=== PATIENT | female | born 2000 | race Two or more races ===

== ENCOUNTER 2024-06-26 18:08 | Emergency (ER) | payer MEDICAID, SELFPAY ==
[2024-06-26 18:09] VITALS: BMI 28.8
--- NOTE | 2024-06-26 18:42 | PD.EDRME ---
Rapid Medical Screening Exam RME Arrival date/time: 06/26/24 18:08 Time Seen by Provider: 06/26/24 18:31 Vital signs: Vital Signs Temperature 102.5 F H 06/26/24 18:43 Pulse Rate 137 H 06/26/24 18:43 Respiratory Rate 18 06/26/24 18:43 Blood Pressure 127/83 06/26/24 18:43 Pulse Oximetry (%) 98 06/26/24 18:43 Oxygen Delivery Method Room Air 06/26/24 18:43 Vital signs reviewed by provider: Yes RME Narrative: 23-year-old female with no significant past medical history coming in with abdominal pain right mid quadrant that started 2 days ago. The patient states the pain has been constant and intermittently increasing over the last few days. No radiation. Fever subjective at home without taking any Tylenol. The patient otherwise has no vaginal discharge or dysuria. No cough. No surgical past history Normal last bowel movement yesterday Not sexually active..
[2024-06-26 18:43] VITALS: BP 127/83; PULSE 137; RESP 18; TEMP 39.2; O2SAT 98
--- NOTE | 2024-06-26 18:52 | XR_ITS ---
Examination: CT abdomen with intravenous contrast CT pelvis with intravenous contrast 2-D coronal reconstructions 2-D sagittal reconstructions Date and time of exam:June 26, 2024 1045 hrs. Indications: Sepsis today, abdominal pain fever and chills beginning 3 days ago. CTDI: vol (mGy) 6.86 DLP: (mGycm) 370 Technique: Multiple axial sections of the abdomen and pelvis have been obtained. 64 slice high-resolution scanner used. 3 mm axial sections have been obtained, post intravenous injection 60 cc [id number] 2-D sagittal, coronal reconstructions obtained. Low dose protocols were performed. One or more of the following dose reduction techniques were used; automated exposure control, adjustment of the mA and/or KV according to patient size, use of iterative reconstruction technique. Findings: No focal liver or splenic lesion No gallstones No pancreatic mass No renal or ureteral calculi There is focal edema in the right kidney Aorta not enlarged No pericecal inflammatory change 9 cm partially fat-containing pelvic mass Anteverted uterus Urinary bladder intact Impression: Acute right pyelonephritis 9 cm partially fat-containing pelvic mass, recommend pelvic sonography follow-up to exclude dermoid tumor
--- NOTE | 2024-06-26 18:53 | XR_ITS ---
Examination: AP chest single view Technique one AP portable chest single view Indications: Sepsis protocol Exam date and time: June 26, 2024 1920 hrs. Indications: Sepsis today with fever abdominal pain Findings: Normal heart size Lungs are clear. The osseous structures are intact Impression: No active disease
--- NOTE | 2024-06-26 19:02 | EDNOTE_ITS ---
ED Abdominal Pain RME/HPI General Stated complaint: RUQ PAIN/FEVER/CHILLS Time seen by provider: 06/26/24 18:31 Arrival date/time: 06/26/24 18:08 Limitations: no limitations RME / HPI RME / HPI narrative: DR. SIEGEL MAIN ED EVALUATION: 23-year-old female with no significant past medical history presents to the Emergency Department with complaint of abdominal pain in the right mid quadrant that started 2 days ago. The patient states the pain has been constant and intermittently increasing over the last few days. No radiation. Fever subjective at home without taking any Tylenol. The patient otherwise has no vaginal discharge or dysuria. No cough. No surgical past history Normal last bowel movement yesterday Not sexually active. Related Data Previous Rx's ?Medication ?Instructions ?Recorded cephalexin 500 mg capsule 500 mg PO TID #21 caps 06/27/24 Allergies Allergy/AdvReac Type Severity Reaction Status Date / Time No Known Allergies Allergy Verified 06/26/24 21:06 Review of Systems Review of Systems Systems Reviewed: All systems reviewed, normal except as documented Narrative Review of Systems: GEN: + subjective fever, no chills, no weight loss EYES: No discharge, no visual changes, no pain HEENT: No ear pain, no congestion, no sore throat PULM: No shortness of breath, no cough, no congestion CV: No chest pain, no dyspnea on exertion, no palpitations GI: No nausea, no vomiting, no diarrhea, + abdominal pain in the right mid quadrant pain, no constipation : No frequency, no urgency and no dysuria MUSC/SKEL: No joint pain, no back pain SKIN: No rash PSYCH: No hallucinations, no depression HEME/LYMPH: No easy bleeding or bruising tendencies NEURO: No weakness, no headache Past Medical History Social History SMOKING STATUS: Never smoker SUBSTANCE USE: does not use ALCOHOL: Never ED Exam General Limitations: Present no limitations General appearance: Present alert and in no apparent distress Head Head exam: Present atraumatic, normocephalic and normal inspection Eye Eye exam: Present normal appearance, PERRL and EOMI ENT ENT exam: Present normal exam, normal oropharynx and mucous membranes moist Neck Neck exam: Present normal inspection, full ROM and trachea midline Chest Chest inspection: Present normal inspection and symmetric chest wall rise Respiratory Respiratory exam: Present normal lung sounds bilaterally Cardiovascular Cardiovascular exam: Present regular rate, normal rhythm and normal heart sounds Abdominal Exam Abdominal exam: Present tenderness (Right of the umbilicus tenderness palpation.), guarding, rebound, normal bowel sounds, psoas sign and heel tap sign; Absent distention or Orellana's sign Extremities Exam Extremities exam: Present normal inspection and full ROM Back Exam Back exam: Present normal inspection and full ROM Neurological Exam Neurological exam: Present alert, oriented X3 and CN II-XII intact Psychiatric Psychiatric exam: Present normal affect and normal mood Skin Skin exam: Present warm, dry, intact and normal color Course Course Course Narrative: 1853: Sepsis alert initiated. Orders made at this time are congruent with ED Adult Sepsis Order List. Re-evaluation is to be completed. 2102: Fluids started. 2132: Sepsis reassessment performed consisting of lab review, vitals, physical exam including auscultation of heart, lungs, and visual evaluation of capillary refills, mucosal membranes and extremities. Quality Measures none Orders Category Date Time Status CT Screening X1 Care 06/26/24 18:52 Active Nurse Receptionist STAT Care 06/26/24 18:52 Active Continuous Pulse Oximetry STAT Care 06/26/24 18:52 Completed EKG (ED ONLY) *Do not use* NOW Care 06/26/24 18:52 Completed Insert IV NOW Care 06/26/24 18:52 Active NPO STAT Care 06/26/24 18:52 Active Strict Intake and Output Routine Care 06/26/24 18:[address] abd pel w con SEPSIS OTIS Stat Exams 06/26/24 18:52 Completed EKG (ED Only) Stat Exams 06/26/24 18:52 Ordered US pelvic complete Stat Exams 06/27/24 01:30 Taken XR chest 1V SEPSIS PROTOCOL Stat Exams 06/26/24 18:53 Completed B-Type Natriuretic Peptide Stat Lab 06/26/24 20:20 Completed Blood Culture (Lab) Stat Lab 06/26/24 20:20 Received CBC Stat Lab 06/26/24 20:20 Completed Comprehensive Metabolic Panel Stat Lab 06/26/24 20:20 Completed HCG Qualitative,Urine Stat Lab 06/26/24 19:24 Completed LDH (Lactate Dehydrogenase) Stat Lab 06/26/24 20:20 Completed Lactate (Lactic Acid) Stat Lab 06/26/24 20:20 Completed Lipase Stat Lab 06/26/24 20:20 Completed Magnesium Stat Lab 06/26/24 20:20 Completed Partial Thromboplastin Time Stat Lab 06/26/24 20:20 Completed Phosphorous Stat Lab 06/26/24 20:20 Completed Procalcitonin Stat Lab 06/26/24 20:20 Completed Prothrombin Time with INR Stat Lab 06/26/24 20:20 Completed Troponin I Stat Lab 06/26/24 20:20 Completed Urinalysis Stat Lab 06/26/24 19:24 Completed Urine Culture Stat Lab 06/26/24 19:24 Received Dexamethasone Inj [Decadron Inj] Med 06/26/24 18:41 Discontinued 10 mg PO X1 ONE DiphenhydrAMINE [Benadryl] Med 06/26/24 18:41 Discontinued 25 mg PO X1 ONE Famotidine [Pepcid] Med 06/26/24 18:41 Discontinued 20 mg PO X1 ONE Ketorolac Inj [Toradol Inj] Med 06/27/24 01:30 Discontinued 30 mg IVP X1 ONE Morphine Inj Med 06/27/24 01:30 Discontinued 2 mg IVP X1 ONE Ondansetron Inj [Zofran Inj] Med 06/27/24 01:32 Discontinued 4 mg IV X1 ONE Sodium Chloride 0.9% 1000 ml [Ns] 1,000 ml Med 06/27/24 01:31 Discontinued IV 999 mls/hr Sodium Chloride 0.9% 1000 ml [Ns] 1,710 ml Med 06/26/24 18:52 Discontinued IV 1,710 mls/hr cefTRIAXone [Rocephin] 1,000 mg Med 06/27/24 01:31 Discontinued Sodium Chloride 0.9% (P) [Ns 0.9% (P)] 50 ml IV X1 Oxygen Delivery NOW RT 06/26/24 18:52 Active Vital Signs Vital signs: Vital Signs Temperature 102.5 F H 06/26/24 18:43 Pulse Rate 137 H 06/26/24 18:43 Respiratory Rate 18 06/26/24 18:43 Blood Pressure 127/83 06/26/24 18:43 Pulse Oximetry (%) 98 06/26/24 18:43 Oxygen Delivery Method Room Air 06/26/24 18:43 Abdominal Pain MDM MDM Narrative MDM Narrative:: I, Lisa Munoz am scribing for and in the presence of Dr. Siegel. Patient data External records reviewed:: None (no previous visits) Clinical information provided by:: patient Social determinants that could affect healthcare access:: none Patient has the following chronic illnesses:: Denies any PMHx, surgeries, daily medications, or known allergies. How is presenting disease/condition affected by chronic disease/condition?: no chronic disease Evaluation data The following diagnostics were reviewed and interpreted by me:: lab results, radiology exam(s) and EKG tracing(s) Lab and/or radiology exams considered but not ordered:: none Interpretation Summary: Procedure(s): XR chest 1V SEPSIS PROTOCOL Accession Number(s): [id number] cc: Juan F Boo MD; David Solano MD; Renae Siegel MD~ Examination: AP chest single view Technique one AP portable chest single view Indications: Sepsis protocol Exam date and time: June 26, 2024 1920 hrs. Indications: Sepsis today with fever abdominal pain Findings: Normal heart size Lungs are clear. The osseous structures are intact Impression: No active disease Dictated By: David Solano MD [facility] Report Signed Patient: KARLY OLIVAS. Record#: [id number] Birthdate: 2000 Age/Sex: 23 / F [facility] Attending Dr: Ordering Physician: Renae Siegel MD Date of Service: 06/26/24 Procedure(s): CT abd pel w con SEPSIS OTIS Accession Number(s): [id number] cc: Juan F Boo MD; David Solano MD; Renae Siegel MD~ Examination: CT abdomen with intravenous contrast CT pelvis with intravenous contrast 2-D coronal reconstructions 2-D sagittal reconstructions Date and time of exam:June 26, 2024 1045 hrs. Indications: Sepsis today, abdominal pain fever and chills beginning 3 days ago. CTDI: vol (mGy) 6.86 DLP: (mGycm) 370 Technique: Multiple axial sections of the abdomen and pelvis have been obtained. 64 slice high-resolution scanner used. 3 mm axial sections have been obtained, post intravenous injection 60 cc [id number] 2-D sagittal, coronal reconstructions obtained. Low dose protocols were performed. One or more of the following dose reduction techniques were used; automated exposure control, adjustment of the mA and/or KV according to patient size, use of iterative reconstruction technique. Findings: No focal liver or splenic lesion No gallstones No pancreatic mass No renal or ureteral calculi There is focal edema in the right kidney Aorta not enlarged No pericecal inflammatory change 9 cm partially fat-containing pelvic mass Anteverted uterus Urinary bladder intact Impression: Acute right pyelonephritis 9 cm partially fat-containing pelvic mass, recommend pelvic sonography follow-up to exclude dermoid tumor Dictated By: David Solano MD Signed By: <Electronically signed by David Solano MD in [place]> 06/26/24 2313 Medications / Prescriptions Medications or Prescriptions considered but not ordered:: none Medication administrations:: Medication Administration History Discontinued Medications Dexamethasone Sodium Phosphate (Dexamethasone Sod Phos Inj 10 Mg/Ml Vial) 10 mg PO X1 ONE Stop: 06/26/24 18:42 Last Admin: 06/26/24 20:40 Dose: Not Given Documented By: KD Non-Admin Reason: Discontinued Diphenhydramine HCl (Diphenhydramine Elix 25 Mg/10 Ml Udc) 25 mg PO X1 ONE Stop: 06/26/24 18:42 Last Admin: 06/26/24 20:40 Dose: Not Given Documented By: KD Non-Admin Reason: Discontinued Famotidine (Famotidine 20 Mg Tablet) 20 mg PO X1 ONE Stop: 06/26/24 18:42 Last Admin: 06/26/24 20:40 Dose: Not Given Documented By: KD Non-Admin Reason: Discontinued Sodium Chloride (Ns) 1,710 mls @ 1,710 mls/hr 30 ml/kg infuse over 60 min (1710 ml) IV .Q1H ONE Stop: 06/26/24 19:51 Last Infusion: 12/21/24 22:06 Dose: Infused Documented By: Admin: 06/26/24 21:03 Dose: 1,710 mls/hr Documented By: RAFA Ceftriaxone Sodium 1,000 mg/ (Sodium Chloride) 50 mls @ 100 mls/hr IV X1 ONE Stop: 06/27/24 02:00 Last Infusion: 06/27/24 03:04 Dose: Infused Documented By: Admin: 06/27/24 01:56 Dose: 100 mls/hr Documented By: RAFA Sodium Chloride (Ns) 1,000 mls @ 999 mls/hr IV .Q1H1M ONE Stop: 06/27/24 02:31 Last Infusion: 06/27/24 03:04 Dose: Infused Documented By: Admin: 06/27/24 01:55 Dose: 999 mls/hr Documented By: RAFA Ketorolac Tromethamine (Ketorolac Inj 30 Mg/Ml Vial) 30 mg IVP X1 ONE Stop: 06/27/24 01:31 Last Admin: 06/27/24 01:58 Dose: 30 mg Documented By: RAFA Morphine Sulfate (Morphine Sulf Inj 10 Mg/Ml Vial) 2 mg IVP X1 ONE Stop: 06/27/24 01:31 Last Admin: 06/27/24 01:58 Dose: 2 mg Documented By: RAFA Ondansetron HCl (Ondansetron Inj 2 Mg/Ml Inj 2 Ml) 4 mg IV X1 ONE; Protocol Stop: 06/27/24 01:33 Last Admin: 06/27/24 01:57 Dose: 4 mg Documented By: RAFA see above Consultations Consultation(s) initiated? (list below): No Diagnosis Differential diagnosis abdominal pain: other (appendicitis, gallbladder disease, acute cholecystitis, cholangitis, viral syndrome) Most likely diagnosis given after review of the tests above:: see below Admission Indicated Admission indicated?: not indicated Admission Request Was there a request for admission?: No Disposition Plan Disposition Plan: Discharge Discharge Attestation Discharge Attestation: The patient and all family members were given an opportunity to ask questions and understood the discharge instructions. Discharge instructions specifically effects, indications for sooner follow up or return to the emergency department, and the expected course of current diagnosis. Patient condition: Stable Discharge Plan Plan Patient Disposition: HOME (Self Care) Patient condition on transfer: Stable Prescriptions/Referrals Prescriptions/Med Rec: New cephalexin 500 mg capsule 500 mg PO TID Qty: 21 0RF Problem List Clinical Impression: Pyelonephritis, UTI (urinary tract infection) Patient/Caregiver Discharge Instructions Education Materials: When to Use Antibiotics, ED Pyelonephritis, Female (Adult) Additional Instructions: 1,. Take anybody since he cried for your infection of your kidney. You can use [id number] Tylenol and/or Motrin for fever if needed. You will have to use alternate form of control pill for the next 30 days if you are on control medications because you will be on antibiotics. 2. Follow-up with your primary care physician in 48 hours to get the results of the urine culture. Return sooner to the emergency department if you are feeling worse, or vomiting, high fever despite Tylenol Motrin, or any other concerns. Print Language: Indonesian Stand Alone Forms: Thu Award Info., Patient Portal Info Letter
[2024-06-26 19:38] LABS: Collection Type, Urine Clean Catch
[2024-06-26 20:03] LABS: Bacteria,Urine Rare; Bilirubin,Urine Negative (Negative); Blood,Urine 1+ (Negative); Clarity,Urine Turbid (Clear/Hazy); Color,Urine Yellow (Lt Yel-Yel); Glucose, Urine Negative (Negative); Ketones,Urine 1+ (Negative); Leukocyte Esterase,Urine Positive (Negative); Nitrite,Urine Positive (Negative); PH,Urine 7.5 (5.0-7.0); Protein,Urine 1+ (Neg - Trace); RBC,Urine 43 /hpf (0-3); Specific Gravity,Urine 1.017 (1.001-1.035); Squamous Epithelial Cell,Urine 2 /hpf (0-5); Urobilinogen,Urine Negative mg/dL (0.0-1.0); WBC,Urine 833 /hpf (0-5)
[2024-06-26 20:12] LABS: HCG Qualitative,Urine Negative
[2024-06-26 20:32] VITALS: BP 104/85; PULSE 125; RESP 19; TEMP 37.2; O2SAT 97
[2024-06-26 20:37] LABS: Basophils % (Auto) 0 % (0-2.5); Eosinophils % (Auto) 0 % (0-10); Hematocrit 41.9 % (36.0-46.0); Hemoglobin 13.9 g/dL (12.0-16.0); Immature Granulocytes % (Auto) 0 % (0-0); Immature Granulocytes Auto 0.04 Thou/mm3 (0.00-0.00); Lymphocytes # (Auto) 1.8 Thou/mm3 (1.0-4.8); Lymphocytes % (Auto) 17 % (10-50); Mean Corpuscular HGB Conc 33.2 g/dl (31.0-37.0); Mean Corpuscular Hemoglobin 28.1 pg (25.0-35.0); Mean Corpuscular Volume 85 fL (80-100); Monocytes # (Auto) 1.3 Thou/mm3 (0.0-0.8); Monocytes % (Auto) 12 % (0-12); Neutrophils # (Auto) 7.7 Thou/mm3 (1.8-7.7); Neutrophils % (Auto) 71 % (37-80); Nucleated Red Blood Cell % 0 /100 WBC (0); Platelet Count 330 Thou/mm3 (140-440); RDW Standard Deviation 36.9 fL (36.4-46.3); Red Blood Count 4.94 Miln/mm3 (4.00-5.20); White Blood Count 10.8 Thou/mm3 (3.6-11.0)
[2024-06-26 20:39] VITALS: PULSE 120; RESP 21; RESP 97
[2024-06-26 20:56] LABS: B-Type Natriuretic Peptide < 20 pg/mL (0-100)
[2024-06-26 21:00] VITALS: PULSE 121
[2024-06-26 21:01] LABS: INR 1.1 (0.9-1.3); Partial Thromboplastin Time 29.9 Seconds (22.0-36.0); Prothrombin Time 11.9 Seconds (9.0-12.2)
[2024-06-26] MEDS: SODIUM CHLORIDE 0.9% 1000 ML 1,710 ML 1710 ML IV (21:03)
[2024-06-26 21:05] LABS: Alanine Aminotransferase 56 U/L (10-49); Albumin, Serum 5.3 gm/dL (3.5-5.0); Albumin/Globulin Ratio 1.5 (1.2-2.2); Alkaline Phosphatase 164 U/L (46-116); Anion Gap 9 (7-16); Aspartate Amino Transferase 19 U/L (0-34); BUN/Creatinine Ratio 9 Ratio (12-20); Bilirubin,Total 0.4 mg/dL (0.3-1.2); Blood Urea Nitrogen 8 mg/dL (9-23); Carbon Dioxide 27.2 mMol/L (20.0-31.0); Chloride 101 mMol/L (98-107); Creatinine (Component) 0.9 mg/dL (0.6-1.3); Estimated Creatinine Clearance 101.5 mL/min (>60); Globulin 3.5 gm/dL (2.3-3.5); Glucose 106 mg/dL (74-106); LDH (Lactate Dehydrogenase) 184 U/L (120-246); Lipase 55 U/L (12-53); Magnesium 2.1 mg/dL (1.6-2.6); Osmolality,Calculated 272 (275-295); Phosphorous 3.1 mg/dL (2.4-5.1); Potassium 3.5 mMol/L (3.4-5.1); Procalcitonin 0.37 ng/ml (0.0-0.49); Sodium 137 mMol/L (136-145); Total Protein 8.8 gm/dL (5.7-8.2); Troponin I < 0.002 ng/mL (0.0-0.045); eGFR > 60 See Note
[2024-06-26 23:35] VITALS: BP 102/77; PULSE 106; RESP 17; TEMP 37; O2SAT 99
--- NOTE | 2024-06-27 01:30 | XR_ITS ---
Examination: Pelvic ultrasound, transabdominal, complete Technique: Transabdominal ultrasound of the pelvis performed using grayscale imaging Date and time of exam: June 27, 2024 0312 hrs. Indications: 9 cm partially fat-containing mass in the pelvis on CT pelvis study June 26, 2024 10:45 PM, right lower abdomen pain beginning 4 days ago Findings: Uterus 6.3 x 3.6 x 3.4 cm Endometrial sign 0.6 cm No uterine mass or intrauterine gestation Right ovary 4.0 x 2.2 x 3.0 cm Large echogenic mass with fluid in the right adnexal region 9.5 x 7.8 x 7.8 cm Left ovary obscured by bowel gas Impression: Large right complex adnexal mass 9.5 x 7.8 x 7.8 cm, recommend MRI pelvis follow-up pre and post contrast for further characterization
[2024-06-27] MEDS: SODIUM CHLORIDE 0.9% 1000 ML 1,000 ML 999 ML IV (01:55)
[2024-06-27] MEDS: cefTRIAXone 1,000 MG in SODIUM CHLORIDE 0.9% (P) 50 ML 100 MG IV (01:56)
[2024-06-27] MEDS: ONDANSETRON INJ 2 MG/ML INJ 2 ML 4 MG IV (01:57)
[2024-06-27] MEDS: MORPHINE SULF INJ 10 MG/ML VIAL 2 MG IVP (01:58)
[2024-06-27] MEDS: KETOROLAC INJ 30 MG/ML VIAL IVP (01:58)
--- NOTE | 2024-06-27 04:35 | PRELIM_ITS ---
Pelvic ultrasound (transabdominal) with doppler and wave doppler spectral analysis. June 27, 2024 at 0312 hours Clinical history: 23 to with pelvic mass possible demoid cyst. Technique: Real-time, g rayscale, transabdominal pelvic ultrasound was performed using Duplex scanning including arterial inf low, venous outflow, color and spectral Doppler.Comparison: No prior study is available for compariso n. Findings:The obstetrical tech worksheet is not available at the time of this report.The uterus is columba l in size measuring 6.3 x 3.6 x 3.4 cm. The endometrium is unremarkable and measures 0.6 cm.The right ovary measures 4.0 x 2.2 x 2.9 cm and is unremarkable.The left ovary was not visualized.Right ovary demonstrates color flow and spectral waveforms on Doppler evaluation.Right complex adnexal mass measu ring 9.5 x 7.8 x 7.8 cm.There is no free fluid on the submitted images.Impression:Large right adnexal mass, correlation with MRI for characterization is recommended. Report Electronically Signed By: Gianna Trotter 06/27/2024 4:34:49 AM [EST]
== END 2024-06-27 05:03 | disposition home or self-care (01) ==
PROVIDERS: Emergency Provider Emergency Medicine; PCP Family Medicine
DX: N10 Acute pyelonephritis (principal); R19.03 Right lower quadrant abdominal swelling, mass and lump; R00.0 Tachycardia, unspecified
CPT/HCPCS: 36415; 71045; 74177; 76856; 80053; 81001; 81025; 83605; 83615; 83690; 83735; 83880; 84100; 84145; 84484; 85025; 85610; 85730; 87040; 87077; 87086; 87186; 93005; 96361; 96365; 96375; 99285; A4649; J0696; J1885; J2270; J2405; J7030; J7050; Q9967